=== PATIENT | female | born 1985 | race Caucasian/White ===

== ENCOUNTER 2017-02-05 20:04 | Emergency (ER) | payer OTHER ==
[2017-02-05] MEDS ORDERED: ASPIRIN 325 MG TAB PO ONE (23:11)
--- NOTE | 2017-02-05 23:11 | EDPHY ---
H & P Stated Complaint: concerned about possible blood clot in RLE after long drive Source: Patient Exam Limitations: No limitations - Medical/Surgical History Hx Asthma: No Hx Chronic Respiratory Disease: No Hx Diabetes: No Hx Cardiac Disease: No Hx Renal Disease: No Hx Cirrhosis: No Hx Alcoholism: No Hx HIV/AIDS: No Hx Splenectomy or Spleen Trauma: No Other PMH: abd myomectomy - Social History Smoking Status: Never smoked Time Seen by Provider: 02/05/17 21:02 HPI/ROS: CHIEF COMPLAINT: Right leg pain HISTORY OF PRESENT ILLNESS: 31-year-old female presents emergency department complaining of right calf pain. Patient states she has had right calf and hamstring pain x4 days. Recent long distance travel to [place] via car 2 weeks ago, 1 week ago a flight to [place]. Patient takes control pills, she does not smoke cigarettes, no previous history of DVT. She denies chest pain or shortness of breath, she denies trauma. No numbness or tingling in this leg , no other complaints. REVIEW OF SYSTEMS: A comprehensive 10 point review of systems is otherwise negative aside from elements mentioned in the history of present illness. (Marie Ware) - Physical Exam Exam: GEN: Awake, alert, oriented, no acute distress RESP: nl resp effort MSK: Right calf with tenderness to palpation posteriorly, compartments are soft , 2+ pedal pulses, sensation intact to light touch, cap refill less than 2 seconds SKIN: No break in skin (Marie Ware) Constitutional: Initial Vital Signs Temperature (C) 37.1 C 02/05/17 20:18 Heart Rate 79 02/05/17 20:18 Respiratory Rate 16 02/05/17 20:18 Blood Pressure 176/84 H 02/05/17 20:18 O2 Sat (%) 99 02/05/17 20:18 O2 Delivery Mode Room Air Allergies/Adverse Reactions: pine nut Allergy (Verified 02/05/17 20:24) Home Medications: Medication Instructions Recorded Control 02/05/17 Medical Decision Making - Diagnostics Imaging: Discussed imaging studies w/ inbound call center agent Radiologist - Diagnostics Imaging Results: Imaging Impressions Extremity Venous Study 02/05/17 21:02 Impression: Focal thrombus peroneal vein proximal calf on the right. No additional evidence of deep venous thrombosis. Findings discussed with Marie Ware NP at 23:00 hour, 02/05/2017. ED Course/Re-evaluation: 31-year-old female presents with right calf pain after long distance travel, no trauma. Ultrasound obtained to evaluate for DVT. Ultrasound shows a short segment of clot in her right peroneal vein. After consulting with the hospitalist and up to date, and discussing the options with the patient, I will treat her with 325 mg of aspirin daily and she will follow up with her primary care doctor for serial ultrasounds. I have given the patient strict return precautions for any chest pain, shortness of breath, discoloration of her legs, worsening symptoms, new symptoms or concerns. (Marie Ware) Differential Diagnosis: Diagnosis considered but not limited to muscle strain, fracture, DVT, lumbar radiculitis. (Marie Ware) Other Provider: The patient was evaluated and managed by the Physician Heat And Frost Insulator/ Nurse Practitioner. My co-signature indicates that I have reviewed this chart and I agree with the findings and plan of care as documented. I am the secondary supervising physician. (Pattie Becerra) - Data Points Medications Given: Discontinued Medications Aspirin (Aspirin) 325 mg PO EDNOW ONE Stop: 02/05/17 23:12 Last Admin: 02/05/17 23:40 Dose: 325 mg Departure - Departure Disposition: Home, Routine, Self-Care Clinical Impression: Deep venous thrombosis of right peroneal vein Condition: Good Instructions: Deep Venous Thrombosis (ED) Additional Instructions: Take 325 mg of aspirin once daily, heating pad to your right calf, follow-up with your primary care doctor in 1 week for repeat ultrasound. Return to the emergency department for any worsening symptoms, chest pain, shortness of breath , new symptoms or concerns. Referrals: EMY MATA [Primary Care Provider] - As per Instructions Kylie Lopez MD [Medical Doctor] - As per Instructions
[2017-02-05] MEDS ORDERED: ASPIRIN 325 MG TAB ONE (23:36)
[2017-02-05 23:41] VITALS: BP 145/70; PULSE 83; RESP 18; TEMP 99; O2SAT 94
== END 2017-02-05 23:42 | disposition home or self-care (01) ==
DX: I82.491 Acute embolism and thrombosis of other specified deep vein of right lower extremity (principal)

== ENCOUNTER 2018-10-30 12:49 | Observation (INO) | payer OTHER ==
--- NOTE | 2018-10-30 13:44 | EDPHY ---
H & P Stated Complaint: RUQ pain Time Seen by Provider: 10/30/18 13:12 HPI/ROS: CHIEF COMPLAINT: Persistent right upper quadrant pain, abnormal ultrasound HISTORY OF PRESENT ILLNESS: 33-year-old female presents with right upper quadrant pain. Onset of right upper quadrant pain 5 days ago. The pain was initially severe and associated with nausea. The pain has been persistent since then and is currently 4/10. The pain increases with eating. She was seen by her primary care provider 2 days ago. Laboratory tests revealed leukocytosis and elevated lipase. She had an abdominal ultrasound today that revealed a dilated common bile duct, no gallstones visualized. Today laboratory tests are unremarkable. No fever or vomiting. REVIEW OF SYSTEMS: complete 10 point ROS reviewed and is negative except for the noted elements in the HPI - Personal History LMP (Females 10-55): Post Menopausal Current Tetanus/Diphtheria Vaccine: Yes Current Tetanus Diphtheria and Acellular Pertussis (TDAP): Yes - Medical/Surgical History Hx Asthma: No Hx Chronic Respiratory Disease: No Hx Diabetes: No Hx Cardiac Disease: No Hx Renal Disease: No Hx Cirrhosis: No Hx Alcoholism: No Hx HIV/AIDS: No Hx Splenectomy or Spleen Trauma: No Other PMH: abd myomectomy, PNA, - Social History Smoking Status: Never smoked Alcohol Use: Sober Drug Use: None - Physical Exam Exam: General Appearance: Alert, pleasant Eyes: Pupils equal and round, no conjunctival pallor or injection ENT, Mouth: Mucous membranes moist Neck: Normal inspection Respiratory: Lungs are clear to auscultation Cardiovascular: Regular rate and rhythm Gastrointestinal: Abdomen is soft, right upper quadrant tenderness Neurological: A&O, nonfocal, normal gait Skin: Warm and dry, no rash Extremities: Nontender, no pedal edema Psychiatric: Mood and affect normal Constitutional: Initial Vital Signs Temperature (C) 37.5 C 10/30/18 13:05 Heart Rate 79 10/30/18 13:05 Respiratory Rate 16 10/30/18 13:05 Blood Pressure 142/75 H 10/30/18 13:05 O2 Sat (%) 97 10/30/18 13:05 O2 Delivery Mode Room Air Allergies/Adverse Reactions: doxycycline Allergy (Verified 10/30/18 14:08) Rash tree nut [Nuts] Allergy (Verified 10/30/18 14:08) Home Medications: Medication Instructions Recorded Fluticasone Nasal [Flonase Nasal 1 sprays NASAL DAILY 10/30/18 [place] (RX)] Ibuprofen [Motrin (*)] 200 mg PO DAILY PRN 10/30/18 [place] Control 1 each PO HS 10/30/18 Maalox 5 - 10 ml PO DAILY PRN 10/30/18 Multivitamins [Multivitamin (*)] 1 each PO DAILY 10/30/18 Medical Decision Making - Diagnostics Imaging Results: Imaging Impressions Abdomen Ultrasound 10/30/18 11:30 Impression: 1. Dilated common bile duct 8 mm. Consider MRCP cholangiography. 2. No cholelithiasis. 3. Mild hepatomegaly without definite focal masses or intrahepatic biliary ductal dilation. Findings and recommendations given to Carey Ontiveros RN INVESTIGATIVE WRITER at 11:58 hour, . Final report concurs with initial preliminary interpretation. ED Course/Re-evaluation: This well-appearing patient presents with persistent right upper quadrant pain and dilated common bile duct. 2 days ago, white blood cell count and lipase elevated, concerning for common bile duct stone versus other obstructive etiology. However, no gallstones seen on ultrasound today and laboratory tests are unremarkable. Discussed with Dr. Leandra Burr, will admit and obtain HIDA scan. Suspect cholecystitis and common bile duct obstruction. Differential Diagnosis: Differential diagnosis includes though it is not limited to appendicitis, cholecystitis, diverticulitis, pyelonephritis, bowel perforation, small bowel obstruction. Departure - Departure Disposition: [facility] Inpatient Acute Clinical Impression: Right upper quadrant pain, Common bile duct dilatation Condition: Fair
[2018-10-30] MEDS ORDERED: SINCALIDE 5 MCG VIAL IV ONE (18:04)
[2018-10-30 19:38] VITALS: BP 127/82
--- NOTE | 2018-10-30 22:27 | SOAPPROG ---
SOAP Progress Note Assessment/Plan: Assessment: 33-YEAR-OLD FEMALE WITH RIGHT UPPER QUADRANT PAIN ON 2 OCCASIONS SUBMITTED THIS TIME FOR EVALUATION OBSERVATION. HIDA SCAN IS NORMAL WITH A NORMAL EJECTION FRACTION AND GALLBLADDER ULTRASOUND IS NEGATIVE FOR STONES ALTHOUGH NEVUS SLIGHT ENLARGEMENT OF THE BILE DUCT AT THE PRESENT TIME SHE IS AFEBRILE HER PAIN IS RESOLVED AND SHE WISHES TO BE DISCHARGED HOME LFTS ARE NORMAL HEENT NONICTERIC/CHEST CLEAR/COR REGULAR RHYTHM ABDOMEN SOFT NONTENDER WITHOUT MASSES ORGANOMEGALY RIGHT UPPER QUADRANT PAIN PROBABLY UNRELATED TO A GALLBLADDER Plan: CLEAR LIQUIDS AND HOME TONIGHT IF WELL TOLERATED/FOLLOW-UP IN THE OFFICE TOMORROW/RISKS AND OPTIONS FULLY DISCUSSED 10/30/18 22:25 Objective: Vital Signs Temp Pulse Resp BP Pulse Ox 37.1 C 80 17 127/82 H 96 10/30/18 19:38 10/30/18 19:38 10/30/18 19:38 10/30/18 19:38 10/30/18 19:38 ICD10 Worksheet Patient Problems: Problems Problem Status Onset Common bile duct dilatation Acute Right upper quadrant pain Acute
== END 2018-10-30 23:00 | disposition home or self-care (01) ==
LOC: INTOOBSV 13:47 → FOB 17:20
PROVIDERS: ADMIT Surgery; ATTEND Surgery
DX: R10.11 Right upper quadrant pain (principal); K83.8 Other specified diseases of biliary tract
CPT/HCPCS: 76700; 78227; A9537; G0378; J2805